=== PATIENT | male | born 1950 | race Caucasian/White ===

== ENCOUNTER → 2016-11-29 | Day surgery (SDC) | payer MEDICARE, BC ==
[~2016-11-29] MED LIST: Lactated Ringers 1,000 ML IV SCH; Midazolam 1 MG/ML 2 ML SDV ONE; Propofol 200 MG/20 ML SDV ONE; fentaNYL 100 MCG/2 ML SDV ONE
[2016-11-29 12:12] VITALS: BP 118/66
--- NOTE | 2016-11-30 07:46 | OR ---
DATE OF PROCEDURE: 11/29/2016 POSTOPERATIVE DIAGNOSIS: Colon cancer screening. POSTOPERATIVE DIAGNOSES: 1. Diverticulosis. 2. Two small colon polyps, 25 and 55 cm from the anal verge. PROCEDURE: Colonoscopy to the cecum with biopsy resection of two small colon polyps, 25 and 55 cm from the anal verge. ANESTHESIA: IV anesthesia with monitored anesthesia care. INDICATIONS: This 66-year-old white male is referred for a colonoscopy for colon cancer screening. He says his last colonoscopic exam was done ten years ago. I counseled him for the procedure including risks, alternatives, and he gave his informed consent to proceed. PROCEDURE: The patient was placed in the left lateral decubitus position. IV anesthesia was administered by the Anesthesia Service. Time-out was held. A rectal exam was performed, which was unremarkable. The flexible video Olympus colonoscope was introduced through his anus, up his rectum, and out his colon all way to the cecum. En route, we noted multiple left-sided diverticula. There was no bleeding or inflammation associated with any of them. Also en route, 25 cm from the anal verge, we saw a small polyp which was removed with a few bites of the biopsy forceps. Once the cecum was reached, the scope was slowly withdrawn examining the mucosa throughout. No additional mucosal abnormalities were noted until we reached 55 cm from the anal verge. Here another small polyp was seen, which was removed with the biopsy forceps. The scope was withdrawn further with no other new lesions noted. The scope was retroflexed in the rectum with the distal rectum appearing unremarkable. The scope was straightened and removed. He tolerated the procedure well. Sergio Valdez MD /[id number] LEONEL
== END ==
LOC: JP.SDS 08:47
PROVIDERS: ATTEND Surgery
DX: Z12.11 Encounter for screening for malignant neoplasm of colon (principal); K63.5 Polyp of colon; D12.5 Benign neoplasm of sigmoid colon; K57.30 Diverticulosis of large intestine without perforation or abscess without bleeding; L30.9 Dermatitis, unspecified; M54.5 Low back pain; E66.9 Obesity, unspecified; Z68.38 Body mass index [BMI] 38.0-38.9, adult
CPT/HCPCS: 45384; 88305; J2250; J2704; J3010; J7120

== ENCOUNTER 2019-12-04 06:53 | Day surgery (SDC) | payer MEDICARE, BC ==
[2019-12-04] MEDS ORDERED: Propofol 200 MG/20 ML SDV ONE (07:21)
[2019-12-04] MEDS ORDERED: Midazolam 1 MG/ML 2 ML SDV ONE (07:21)
[2019-12-04] MEDS ORDERED: fentaNYL 100 MCG/2 ML SDV ONE (07:21)
[2019-12-04] MEDS ORDERED: Sodium Chloride 0.9% 1,000 ML IV SCH (07:45)
[2019-12-04 08:51] VITALS: PULSE 64
[2019-12-04 09:44] VITALS: BP 124/75
--- NOTE | 2019-12-04 10:06 | OR ---
DATE OF PROCEDURE: 12/04/2019 SURGEON: Parviz Santos MD PROCEDURE: Colonoscopy. FINDINGS: 1. Transverse colon polyp, completely removed using hot snare wire device. 2. Diverticulosis, mild, limited to sigmoid colon. COMPLICATIONS: None. CLOTH CLASSER: None. ANESTHESIA: MAC. PREOPERATIVE DIAGNOSIS: Screening colonoscopy/history of polyps. POSTOPERATIVE DIAGNOSIS: Screening colonoscopy/history of polyps. RISKS: Risks, benefits, alternatives, and limitations including, but not limited to infection, bleeding, and perforation were explained to the patient, who wished to proceed. PROCEDURE IN DETAIL: The patient was placed in left lateral decubitus position. Digital rectal exam was performed without abnormality. Scope was introduced and advanced atraumatically to the ileocecal valve. A photo was taken. The scope was brought back through the ascending, transverse, descending colon, and retroflexed. The aforementioned polyp was removed as described above. Diverticulosis was described as mild, limited to sigmoid colon, without evidence of diverticulitis or bleeding. No abnormalities on retroflexion. The patient tolerated the procedure well. Parviz Santos MD /[id number]
== END 2019-12-04 09:45 | disposition home or self-care (01) ==
LOC: JP.SDS 06:53
PROVIDERS: ATTEND Surgery
DX: Z12.11 Encounter for screening for malignant neoplasm of colon (principal); D12.3 Benign neoplasm of transverse colon; K57.30 Diverticulosis of large intestine without perforation or abscess without bleeding; E78.5 Hyperlipidemia, unspecified; G47.33 Obstructive sleep apnea (adult) (pediatric); E66.01 Morbid (severe) obesity due to excess calories; Z68.38 Body mass index [BMI] 38.0-38.9, adult; Z99.89 Dependence on other enabling machines and devices; Z86.010 Personal history of colon polyps; Z88.8 Allergy status to other drugs, medicaments and biological substances; Z99.81 Dependence on supplemental oxygen
CPT/HCPCS: 45385; 88305; J2250; J2704; J3010; J7030